=== PATIENT | female | born 1950 | race Caucasian/White ===

== ENCOUNTER → 2017-01-17 | Outpatient (CLI) | payer MEDICARE ==
[~2017-01-17] MED LIST: ACETAMINOPHEN PR; ASPIRIN PO; BENICAR HCT 40-1 TAB PO; CELEBREX PO; EFFEXOR PO; FLEXERIL PO; GLUCOTROL PO; LEVAQUIN PO; METFORMIN PO; NAPROXEN PO; NORVASC PO; PHENERGAN PO; PHENERGAN25 MG; PROTONIX PO; RANITIDINE HCL150 M1 PO; VANCOCIN HCL250 MG IV; VANCOMYCIN IV; ZOCOR PO
--- NOTE | ~2017-01-17 | MY29 ---
[facility] A Service of [facility] RADIOLOGY TEXT RESULTS PATIENT: GRIS ROSS LOCATION: [facility] : 48 UNIT #: [id number] AGE: [address]: Caitlin Walter MD SEX: F ORDER DR: [id number] [facility] [address] [facility]. [place], [place] [address] [id number] O MR#: [id number] Acc #: [id number] NAME: GRIS ROSS : 1950 SEX: F STUDY DATE/TIME: 01/17/2017 11:50 UNIT: [facility] ROOM: STUDY DESCRIPTION: MY PRAVEEN SCREENING W/ CAD BILAT Attending Physician: Caitlin Walter M.D. Referring Physician: Caitlin Walter M.D. Ordering Physician: Caitlin Walter M.D. Primary Care Physician: Caitlin Walter M.D. MEDICAL IMAGING REPORT This report is preliminary unless electronic signature is present EXAM Bilateral digital screening mammogram with CAD 01/17/2017 HISTORY No personal or family history of breast cancer or current complaints. COMPARISON Bilateral screening mammogram 10/06/2011, 01/29/2007. FINDINGS CC and MLO views were obtained of each breast utilizing digital technique and reviewed with an FDA-approved CAD device. The breast parenchyma is predominately fat replaced. Multiple round markers were placed over each breast denoting skin lesions. No new or suspicious nodule, architectural distortion or microcalcification is seen. Benign-appearing lymph nodes are seen in each axillary region, unchanged. Benign lucent-centered calcification in the subareolar left breast, unchanged. IMPRESSION BIRADS category 1. Negative screening mammogram. Routine screening mammogram is recommended in 1 year. Patients over the age of 40 are entered into a reminder system with target due date for the next mammogram. A result letter will also be sent to the patient. BIRADS: 1 Negative Dictated by... [facility] A Service of [facility] RADIOLOGY TEXT RESULTS PATIENT: GRIS ROSS LOCATION: [facility] : 48 UNIT #: [id number] AGE: [address]: Caitlin Walter MD SEX: F ORDER DR: Milagro Vargas M.D. THIS IS AN ELECTRONICALLY VERIFIED REPORT Milagro Vargas M.D. at 01/18/2017 9:40 AM LUCERO/jessica TD: 01/17/2017 13:46 JOB #: [id number] MEDICAL IMAGING REPORT Page 1 of 1 COPY
== END | disposition home or self-care (01) ==
LOC: CWCC 11:21
DX: Z12.31 Encounter for screening mammogram for malignant neoplasm of breast (principal)
CPT/HCPCS: G0202